=== PATIENT | female | born 1985 | race Caucasian/White ===

== ENCOUNTER → 2020-02-09 15:32 | Outpatient (CLI) | payer BC, SELFPAY ==
[2020-02-09 15:46] LABS: Basophils % 0.6 % (0.1-2.0); Eosinophils # 0.2 K/mm3 (0.0-0.4); Eosinophils % 2.7 % (0.1-12.0); Hematocrit 40.3 % (37.0-47.0); Hemoglobin 13.6 g/dL (12.2-16.2); Lymphocytes # 1.8 K/mm3 (0.7-4.5); Lymphocytes % 25.2 % (10-50); Mean Corpuscular HGB Conc 33.7 g/dL (31.8-35.4); Mean Corpuscular Hemoglobin 30.7 pg (27.0-31.2); Mean Corpuscular Volume 91.1 fl (81-99); Mean Platelet Volume 6.9 fl (7.4-10.4); Monocytes # 0.3 K/mm3 (0.1-1.0); Monocytes % 3.5 % (1.7-9.3); Neutrophils # 4.8 K/mm3 (1.8-7.8); Platelet Count 286 K/mm3 (142-424); Red Blood Count 4.42 M/mm3 (4.20-5.40); White Blood Count 7.1 K/mm3 (4.8-10.8)
[2020-02-09 17:49] LABS: Chloride 103 mmol/L (98-107); Potassium 4.5 mmoL/L (3.5-5.1); Sodium 138 mmol/L (136-145)
[2020-02-09 17:51] LABS: Alanine Aminotransferase 14 U/L (12-78); Aspartate Amino Transferase 24 U/L (14-36); Blood Urea Nitrogen 10 mg/dl (7-17); Estimated Glomerular Filt Rate 95 ml/min (>60); GFR (African American) 115 ML/MIN (>60)
[2020-02-09 17:52] LABS: Albumin Level 4.4 g/dl (3.5-5.0); Albumin/Globulin Ratio 1.6 (1.1-1.8); Alkaline Phosphatase 47 U/L (38-126); Anion Gap 9.5 mEq/L (5-15); Bilirubin,Total 0.3 mg/dl (0.2-1.3); Calcium 9.8 mg/dl (8.4-10.2); Carbon Dioxide 30 mmol/L (22.0-30.0); Globulin 2.8 g/dL (1.3-3.2); Glucose 77 mg/dl (74-100); Total Protein,Serum 7.2 g/dl (6.3-8.2)
[2020-02-09 18:23] LABS: Thyroid Stimulating Hormone 1.22 uIU/mL (0.465-4.68)
[2020-02-11 06:13] LABS: FSH 7.4 mIU/mL (.); Progesterone 0.2 ng/mL (.)
[2020-02-11 07:57] LABS: Vitamin B12 866 pg/mL (232-1245)
[2020-02-15 10:16] LABS: Estrogen 159 pg/mL (.)
[2020-02-15 15:53] LABS: Testosterone, Total, LC/MS 36.1 ng/dL (10.0-55.0)
== END ==
PROVIDERS: Visit Provider Nurse Practitioner Psychiatric/Mental Health
DX: Z00.00 Encounter for general adult medical examination without abnormal findings (principal); R53.83 Other fatigue
CPT/HCPCS: 36415; 80053; 82607; 82672; 83001; 84144; 84403; 84443; 85025

== ENCOUNTER 2021-02-02 12:29 | Emergency (ER) | payer BC, SELFPAY ==
[2021-02-02 12:30] VITALS: BP 152/71; PULSE 94; RESP 18; TEMP 36.8; O2SAT 98; BMI 33.6
[2021-02-02 12:36] VITALS: BP 152/71; PULSE 94; RESP 18; TEMP 36.8; O2SAT 98; BMI 33.7
--- NOTE | 2021-02-02 12:54 | XR_ITS ---
PROCEDURE INFORMATION: Exam: XR Left Hip Exam date and time: 02/02/2021 12:54 PM Age: 36 years old Clinical indication: Pain and injury or trauma; Sprain or strain; Hip pain; Injury details: PT had twisting injury to left hip about a month ago with continued pain TECHNIQUE: Imaging protocol: XR Left hip. Views: 2 or 3 views hip with pelvis when performed. COMPARISON: No relevant prior studies available. FINDINGS: Bones/joints: Unremarkable. No acute fracture. Soft tissues: Unremarkable. IMPRESSION: No acute findings.
--- NOTE | 2021-02-02 13:13 | HMH.EDUTC ---
[facility] – [place] Disposition Clinical Impression: Hip pain Disposition: Home, Self-Care Condition on Discharge: Good Instructions: Help for Hip Pain, Etodolac, DI for Hip Pain Additional Instructions: *Etodolac raul 8 hours with meal as needed for pain/inflammation *Not additional anti-inflammatory like Ibuprofen motrin, aleve, advil with the above amount of Etodolac. You can still take Tylenol every 4 hours as needed if you need something else for pain *Ice 20 minutes every 2 hours for the first 48 hours after the initial injury followed by moist heat every 20 minutes 3-4 times a day to affected area *Keep this area active, no movement leads to more stiffness, However take it easy and avoid heavy lifting pushing or pulling *Follow up with you family doctor if no improvement for further treatment Return if needed Straight to ER if any life threatening symptoms Prescriptions: Etodolac 200 mg PO Q8HP PRN #15 cap PRN Reason: Moderate Pain Transmission Status: Pending to [id number] Referrals: Provider,Referral, MD [Primary Care Provider] - As needed Time of Disposition: 13:55 Medical Decision Making - Edgar Inquiry Pt receiving controlled substance: No Edgar was queried for this patient: No Vital Signs: 02/02/21 12:30 02/02/21 12:36 Temperature 98.2 F 98.2 F Temperature Source Oral Oral Pulse Rate [Left Radial] 94 H 94 H Respiratory Rate 18 18 Blood Pressure [Right Arm] 152/71 H 152/71 H Blood Pressure Mean [Right Arm] 98 98 Blood Pressure Source [Right Arm] Automatic Cuff Automatic Cuff Blood Pressure Position [Right Arm] Sitting Sitting 02 Sat by Pulse Oximetry 98 98 Oxygen Delivery Method Room Air Room Air - Radiology Data #1 Image(s): Hip Image Reviewed: Yes I have reviewed radiologist's interpretation Preliminary Findings: No Fracture Seen IMPRESSION: No acute findings. [facility] [place] HPI - General Stated complaint: possible pulled muscle in Lt hip Time Seen by Provider: 02/02/21 13:13 Mode of Arrival: Ambulatory Source of Information: Patient Limitations: No Limitations Description of Symptoms (Recalled from Triage Doc. by RN): pt c/o left leg/hip pain for one month, states that she was lifting trash cans and felt a pop with a sudden burn. - History of Present Illness Provider Complaint: Patient states that she was lifting a trashcan up into the back of a truck about a month ago when she felt something pop in her left hip then she felt a burning like sensation State that ever since she has been having pain on and off in her left hip that is worse when she gets up in the morning State that today she was still having pain so she came in to get it checked - Related Data Previous Rx's Medication Instructions Recorded buspirone 10 mg tablet 10 mg PO BID #60 tab 01/25/21 Etodolac 200 mg PO Q8HP PRN #15 cap 02/02/21 Allergies Allergy/AdvReac Type Severity Reaction Status Date / Time metaproterenol [From Alupent] Allergy Unknown NA Verified 03/29/20 08:54 Sulfa (Sulfonamide Allergy Unknown NA Verified 03/29/20 08:54 Antibiotics) pseudoephedrine Allergy Verified 03/29/20 08:54 [From Sudafed] - Worker's Comp Is this a Worker's Comp case?: No [facility] History - Hepatitis A Screen Drug use history?: No High risk sexual behaviors?: No History of sexually transmitted infection?: No Currently employed?: No Childcare worker?: No Do you have indoor plumbing?: Yes Do you have electricity?: Yes Attestation statement:: This patient has been screened for Hepatitis A risk factors. I have reviewed the patient's past medical history: Yes Medical History: Reports:: Anxiety, Depression Denies:: Cancer, Diabetes Mellitus Type 1, Diabetes Mellitus Type 2, Internal Pacemaker, MRSA Other Surgeries: No: Pacemaker Amputation: No Fractures: No - Social History Smoking Status: Current every day smoker Tobacco Type: cigarettes # Packs/Day (cigarettes): 1 Alcohol Intake: never Substa
[2021-02-02 13:55] VITALS: BP 152/71; PULSE 94; RESP 18; TEMP 36.8; O2SAT 98
== END 2021-02-02 14:00 | disposition home or self-care (01) ==
PROVIDERS: Emergency Provider Nurse Practitioner; PCP Student in an Organized Health Care Education/Training Program
DX: M25.552 Pain in left hip (principal); X50.0XXA Overexertion from strenuous movement or load, initial encounter; Y92.019 Unspecified place in single-family (private) house as the place of occurrence of the external cause; Z88.2 Allergy status to sulfonamides; F17.210 Nicotine dependence, cigarettes, uncomplicated
CPT/HCPCS: 73502; 99202; G0463

== ENCOUNTER 2021-03-01 19:18 | Emergency (ER) | payer BC, SELFPAY ==
[2021-03-01 19:19] VITALS: BP 148/78; PULSE 53; RESP 22; TEMP 37.7; O2SAT 98; BMI 32.6
--- NOTE | 2021-03-01 19:49 | HMH.EDUTC ---
[facility] [place] Clinical Impression: Bronchitis Sinusitis Qualifiers: Sinusitis location: unspecified location Chronicity: unspecified Qualified Code(s): J32.9 - Chronic sinusitis, unspecified Disposition: Home, Self-Care Condition on Discharge: Good Instructions: Sinusitis, DI for Sinusitis, Prednisone, Albuterol, Cefdinir Additional Instructions: ? Start antibiotic today. Be sure to complete entire prescription even if feeling better ? Monitor temp. Tylenol every 4 hours as needed and / or ibuprofen every 6 hours as needed ( As long as your primary care physician has told you that it ok to take both. For fever/aches/pains ER if no less than 101 despite Tylenol or Motrin ? Humidifier/vaporizer or hot steamy shower ? Inhaler every 4-6 hours as needed like we discussed. If unsure how to use it, ask pharmacist to demonstrate how. Should help open airways and improve cough, wheezing, and shortness of breath ? Mucinex during the day for your cough and cough suppressant only at night. Be sure to drink lots of water. *Start steroid today. Helps with inflammation therefore, cough and wheezing. Follow directions on the package. Reviewed side effects. Patient reports taking them before. Follow up IMMEDIATELY for new or worsening of symptoms OR no noticeable improvement over the next 48-72 hours. 911 immediately for any life threatening symptoms such as chest pain or difficulty breathing You were tested for today for COVID19 your test result should be back in the next 24-48 hours, you may call to the [facility] to see if your test results are back in the next 48 hours [phone] [facility] hours are 9am-9pm You was given a handout with instructions for Self Quarantine and Self isolation for while you wait on test results and what to do if they are positive If you are positive the Health Dept will be contacting you also Prescriptions: Albuterol Sulfate [Proventil-HFA 90mcg/puff Inh] 1 - 2 puffs IH Q4HP PRN #1 inh PRN Reason: Shortness Of Breath Transmission Status: Received by [id number] Cefdinir [Omnicef 300mg Capsule] 300 mg PO BID #20 cap Transmission Status: Received by [id number] predniSONE [Prednisone 5mg Tab Dose-Pack] 5 mg PO UD DOSE PK #21 pack Transmission Status: Received by [id number] Referrals: Douglas Tello MD [Primary Care Provider] - As needed Time of Disposition: 20:05 Medical Decision Making - Edgar Inquiry Pt receiving controlled substance: No Edgar was queried for this patient: No Vital Signs: 03/01/21 19:19 Temperature 99.9 F H Temperature Source Oral Pulse Rate [Right] 53 L Respiratory Rate 22 Blood Pressure [Right Arm] 148/78 H Blood Pressure Mean [Right Arm] 101 Blood Pressure Source [Right Arm] Automatic Cuff Blood Pressure Position [Right Arm] Sitting 02 Sat by Pulse Oximetry 98 Oxygen Delivery Method Room Air - Lab Data Lab Results 03/01/21 19:50: Strep Scn Rapid Clinic Negative Orders (Tests/Meds): ED MEDICATIONS Discontinued Medications Generic Name Dose Route Start Last Admin Trade Name Freq PRN Reason Stop Dose Admin Cefdinir 300 mg 03/01/21 20:11 03/01/21 20:12 Cefdinir 300mg Capsule PO 03/01/21 20:12 300 mg ONCE ONE Administration Protocol ORDERS Category Date Time Status Covid-19 Nasal PCR ([facility]) Routine Lab 03/01/21 19:30 Received Strep Screen Confirmation Stat Micro 03/01/21 19:50 Received Medical Decision Narrative: Patient states that she is allergic to Pseudoephedrine but has used albuterol/Proventil in the past without reaction or any complications [facility] [place] - General Stated complaint: Sob, covid test Time Seen by Provider: 03/01/21 19:49 Mode of Arrival: Ambulatory Source of Information: Patient Limitations: No Limitations Description of Symptoms (Recalled from Triage Doc. by RN): cough, SOA, sore throat for the past 2 days HEENT Symptoms (Recalled from RN notes): No Resp Symptoms (Recalled fro
[2021-03-01 19:50] LABS: UTC Strep Screen (Rapid) Negative (Negative)
[2021-03-01 20:22] VITALS: BP 142/70; PULSE 55; RESP 16; TEMP 37.7; O2SAT 98
== END 2021-03-01 20:23 | disposition home or self-care (01) ==
PROVIDERS: Emergency Provider Nurse Practitioner; PCP Student in an Organized Health Care Education/Training Program
DX: J20.9 Acute bronchitis, unspecified (principal); J32.9 Chronic sinusitis, unspecified; Z20.822 Contact with and (suspected) exposure to COVID-19; F17.210 Nicotine dependence, cigarettes, uncomplicated
CPT/HCPCS: 87880; 99203; G0463; U0003

== ENCOUNTER → 2021-09-02 13:01 | Outpatient (CLI) | payer BC, SELFPAY | PROVIDERS: Visit Provider Nurse Practitioner | DX: U07.1 COVID-19 (principal) | CPT/HCPCS: C9803; U0003; U0005 ==

== ENCOUNTER 2022-08-29 18:45 | Emergency (ER) | payer BC, SELFPAY ==
[2022-08-29 19:00] VITALS: BP 144/66; PULSE 96; RESP 20; TEMP 36.9; O2SAT 97; BMI 24.3
[2022-08-29 19:07] LABS: Apearance,Urine Clear (Clear); Bilirubin,Urine Negative (Negative); Blood, Urine Negative (Negative); Color,Urine Yellow (Yellow); Glucose,Urine (UA) Negative (Negative); Ketones,Urine Negative (Negative); Protein,Urine Negative (Negative); Specific Gravity, Urine 1.025 (1.005-1.030); UTC Leukocyte Esterase,Urine Negative (Negative); UTC Nitrate,Urine Negative (Negative); Urobilinogen,Urine 0.2 EU/dl (0.2)
[2022-08-29 19:12] LABS: UTC Pregnancy Test, Urine Negative (Negative)
--- NOTE | 2022-08-29 19:14 | EXP.UTC ---
Discharge Plan Disposition Patient Disposition: Still a Patient Condition: Fair Chief Complaint: Abdominal Pain Prescriptions Prescriptions: No Action desvenlafaxine succinate [Pristiq] 50 mg tablet extended release 24 hr 50 mg PO DAILY Qty: 30 1RF risperidone 0.5 mg tablet 0.5 mg PO BID Qty: 60 1RF risperidone [Risperdal] 1 mg tablet 1 mg PO BID Qty: 60 1RF etodolac 200 MG capsule 200 mg PO Q8HP PRN (Reason: Moderate Pain) Qty: 15 0RF prednisone 5 MG tablets,dose pack 5 mg PO UD DOSE PK Qty: 21 0RF albuterol sulfate 200 PUFFS HFA aerosol inhaler 1 - 2 puffs inhalation Q4HP PRN (Reason: Shortness Of Breath) Qty: 1 0RF cefdinir 300 MG capsule 300 mg PO BID Qty: 20 0RF Referrals Follow up/Referrals: Provider,Referral, MD [Primary Care Provider] - See instructions Discharge ED Provider: Douglas Roth [facility] [place] General Stated complaint: POSSIBLE uti Mode of Arrival: Ambulatory Source of Information: Patient Limitations: No Limitations Time Seen by Provider: 08/29/22 19:14 Description of Symptoms (Recalled from Triage Doc. by RN): PATIENT C/O BILATERAL FLANK PAIN, LOWER ABDOMINAL PAIN, FEVER, CHILLS, BODY ACHES, AND DIFFICULTY URINATING X 1 WEEK HEENT Symptoms (Recalled from RN notes): No Resp Symptoms (Recalled from RN notes): No Skin Symptoms (Recalled from RN notes): No MS Symptoms (Recalled from RN notes): No Functional Status (Recalled from RN notes): WNL History of Present Illness Provider Complaint: Patient states that for the last week on and off she has been having pain in her lower abdomen, bilateral flank pain, fever chills, and body aches for about a week State that tonight she thinks she her kidneys are infected States that she was worried when she was still having pain and wanted to get checked States that pain in her abdomen has let up a little but started getting worse after she got here Related Data Previous Rx's Medication Instructions Recorded etodolac 200 mg capsule 200 mg PO Q8HP PRN Moderate Pain 02/02/21 #15 caps albuterol sulfate 90 mcg/actuation 1 - 2 puffs inhalation Q4HP PRN 03/01/21 aerosol inhaler Shortness Of Breath #1 inh cefdinir 300 mg capsule 300 mg PO BID #20 caps 03/01/21 prednisone 5 mg tablets in a dose 5 mg PO UD DOSE PK ##21 03/01/21 pack desvenlafaxine succinate 50 mg 50 mg PO DAILY #30 tabs 05/15/21 tablet,extended release 24 hr (Pristiq) risperidone 0.5 mg tablet 0.5 mg PO BID #60 tabs 07/29/22 risperidone 1 mg tablet (Risperdal) 1 mg PO BID #60 tabs 08/22/22 Allergies Allergy/AdvReac Type Severity Reaction Status Date / Time metaproterenol [From Alupent] Allergy Unknown NA Verified 07/29/22 11:09 Sulfa (Sulfonamide Allergy Unknown NA Verified 07/29/22 11:09 Antibiotics) pseudoephedrine Allergy Verified 07/29/22 11:09 [From Sudafed] Worker's Comp Is this a Worker's Comp case?: No [facility] Disclaimer: The information contained in this section may have been updated after the patient was seen, as this information can be updated by other users. Medical History (Updated 08/29/22 @ 19:12 by Jessy Fair RN) Anxiety Social History Smoking Status: Current every day smoker tobacco type: cigarettes packs per day: 1 second hand exposure: Yes alcohol intake: never substance use type: painkillers and other (she is currently on methodone that she gets off the street; see above) current occupational status: other Travel in the last 8 weeks: None number of children: 4 caffeine: No ROS Obtained: Yes All systems reviewed & no additional complaints except as documented and Yes Systems reviewed as appropriate & no additional complaints except as documented Constitutional Constitutional: Reports system reviewed and no additional complaints, except as documented, Reports as per HPI, Reports body ache, Reports chills and Reports fever(s) Cardiovascular Cardiovascular: Reports system rev
[2022-08-29 19:20] VITALS: BP 144/66; PULSE 96; RESP 20; TEMP 36.9; O2SAT 97; BMI 25.0
--- NOTE | 2022-08-29 19:23 | CT_ITS ---
PROCEDURE INFORMATION: Exam: CT Abdomen And Pelvis With Contrast Exam date and time: 08/29/2022 7:43 PM Age: 37 years old Clinical indication: Abdominal pain; Additional info: Abd pain TECHNIQUE: Imaging protocol: Computed tomography of the abdomen and pelvis with contrast. Radiation optimization: All CT scans at this facility use at least one of these dose optimization techniques: automated exposure control; mA and/or kV adjustment per patient size (includes targeted exams where dose is matched to clinical indication); or iterative reconstruction. Contrast material: ISOVUE; Contrast volume: 75 ml; Contrast route: IV; COMPARISON: CR XR HIP LT 2-3V W/PELVIS 02/02/2021 12:56 PM FINDINGS: Liver: Normal. No mass. Gallbladder and bile ducts: Gallbladder is decompressed. Pancreas: Normal enhancement. No ductal dilation. Spleen: No splenomegaly. Adrenal glands: No mass. Kidneys and ureters: No hydronephrosis. Stomach and bowel: Moderately distended stomach. Moderate to large stool burden within the colon. No bowel obstruction. Appendix: No evidence of appendicitis. Intraperitoneal space: No significant fluid collection. No free air. Vasculature: No abdominal aortic aneurysm. Lymph nodes: No enlarged lymph nodes. Urinary bladder: No acute abnormality. Reproductive: No acute abnormality. Bones/joints: No acute fracture. Soft tissues: No soft tissue swelling. Other findings: Exam is limited by patient motion. IMPRESSION: 1. Moderately distended stomach. Correlate clinically with potential delayed gastric emptying. 2. Moderate to large stool burden within the colon.
[2022-08-29 19:32] LABS: Basophils # 0.1 K/mm3 (0-0.2); Basophils % 1.2 % (0.1-2.0); Eosinophils # 0.2 K/mm3 (0.0-0.4); Eosinophils % 2.4 % (0.1-12.0); Hematocrit 38.2 % (37.0-47.0); Hemoglobin 13.3 g/dL (12.2-16.2); Lymphocytes # 0.8 K/mm3 (0.7-4.5); Lymphocytes % 12.6 % (10-50); Mean Corpuscular HGB Conc 34.7 g/dL (31.8-35.4); Mean Corpuscular Hemoglobin 30.4 pg (27.0-31.2); Mean Corpuscular Volume 87.8 fl (81-99); Mean Platelet Volume 8.1 fl (7.4-10.4); Monocytes # 0.4 K/mm3 (0.1-1.0); Monocytes % 5.9 % (1.7-9.3); Neutrophils % 77.9 % (37.0-80.0); Platelet Count 256 K/mm3 (142-424); Red Blood Count 4.36 M/mm3 (4.20-5.40); Red Cell Distribution Width 12.3 % (11.5-17.5); White Blood Count 6.4 K/mm3 (4.8-10.8)
[2022-08-29 19:34] LABS: Microscopic, Urine URINE MICROSCOPIC (MICROSCOPIC)
[2022-08-29 19:40] LABS: Alanine Aminotransferase 20 U/L (12-78); Albumin Level 4.5 g/dl (3.5-5.0); Albumin/Globulin Ratio 1.7 (1.1-1.8); Alkaline Phosphatase 79 U/L (38-126); Amylase 93 U/L (30-110); Anion Gap 12.5 mEq/L (5-15); Aspartate Amino Transferase 25 U/L (14-36); Bilirubin,Total 0.2 mg/dl (0.2-1.3); Blood Urea Nitrogen 23 mg/dl (7-17); Calcium 9.3 mg/dl (8.4-10.2); Carbon Dioxide 28 mmol/L (22.0-30.0); Chloride 103 mmol/L (98-107); Creatinine Clearance Estimated 114 mL/min (50-200); Estimated Glomerular Filt Rate 81 ml/min (>60); GFR (African American) 98 ML/MIN (>60); Globulin 2.7 g/dL (1.3-3.2); Glucose 82 mg/dl (74-100); Lipase 309 U/L (23-300); Potassium 3.5 mmoL/L (3.5-5.1); Sodium 140 mmol/L (136-145); Total Protein,Serum 7.2 g/dl (6.3-8.2)
[2022-08-29 19:42] LABS: Appearance,Urine CLEAR (Clear); Bilirubin,Urine Negative (Negative); Blood, Urine Negative (Negative); Color,Urine YELLOW (Yellow); Glucose,Urine (UA) Negative (Negative); Ketones,Urine Negative (Negative); Leukocyte Esterase,Urine Negative (Negative); Nitrate,Urine Negative (Negative); Protein,Urine Negative (Negative); Urobilinogen,Urine 0.2 EU/dl (0.2)
--- NOTE | 2022-08-29 19:52 | PC.NURSE ---
Pt gone to RAD
--- NOTE | 2022-08-29 19:57 | PC.NURSE ---
Pt back from RAD
[2022-08-29 20:00] VITALS: BP 115/74; PULSE 87; O2SAT 99
[2022-08-29 20:16] LABS: Amorphous Sediment,Urine 1+ /lpf; Bacteria,Urine 1+ /lpf; Fine Granular Casts,Urine Occasional #/lpf (0)
--- NOTE | 2022-08-29 20:35 | HMH.EDABDPAI ---
Discharge Plan Disposition Patient Disposition: Home, Self-Care Condition: Fair Prescriptions Prescriptions: No Action desvenlafaxine succinate [Pristiq] 50 mg tablet extended release 24 hr 50 mg PO DAILY Qty: 30 1RF risperidone 0.5 mg tablet 0.5 mg PO BID Qty: 60 1RF risperidone [Risperdal] 1 mg tablet 1 mg PO BID Qty: 60 1RF etodolac 200 MG capsule 200 mg PO Q8HP PRN (Reason: Moderate Pain) Qty: 15 0RF prednisone 5 MG tablets,dose pack 5 mg PO UD DOSE PK Qty: 21 0RF albuterol sulfate 200 PUFFS HFA aerosol inhaler 1 - 2 puffs inhalation Q4HP PRN (Reason: Shortness Of Breath) Qty: 1 0RF cefdinir 300 MG capsule 300 mg PO BID Qty: 20 0RF Referrals Follow up/Referrals: Provider,Referral, MD [Primary Care Provider] - See instructions Clinical Impressions Clinical Impression: Abdominal pain Instructions Patient Instructions: DI for Acute Abdominal Pain Discharge ED Provider: Douglas Roth Abdominal Pain HPI General Chief Complaint: Abdominal Pain Stated Complaint: POSSIBLE uti Time Seen by Provider: 08/29/22 19:14 Mode of Arrival: Wheelchair Source of Information: Patient Limitations: No Limitations Description of Symptoms (Recalled from ER Triage Doc. by RN): pt c/o fever, chills, bilateral flank and lower abd pain that started a week ago. History of Present Illness HPI narrative: lower abd pain over the last few days - worse tonight - no dysuria or hematuria and no vag d/c - MD complaint: abdominal pain Onset (ago): hour(s) Consistency: intermittent Location: LUQ Severity: moderate Associated symptoms: denies other symptoms Related Data Previous Rx's Medication Instructions Recorded etodolac 200 mg capsule 200 mg PO Q8HP PRN Moderate Pain 02/02/21 #15 caps albuterol sulfate 90 mcg/actuation 1 - 2 puffs inhalation Q4HP PRN 03/01/21 aerosol inhaler Shortness Of Breath #1 inh cefdinir 300 mg capsule 300 mg PO BID #20 caps 03/01/21 prednisone 5 mg tablets in a dose 5 mg PO UD DOSE PK ##21 03/01/21 pack desvenlafaxine succinate 50 mg 50 mg PO DAILY #30 tabs 05/15/21 tablet,extended release 24 hr (Pristiq) risperidone 0.5 mg tablet 0.5 mg PO BID #60 tabs 07/29/22 risperidone 1 mg tablet (Risperdal) 1 mg PO BID #60 tabs 08/22/22 Allergies Allergy/AdvReac Type Severity Reaction Status Date / Time metaproterenol [From Alupent] Allergy Unknown NA Verified 07/29/22 11:09 Sulfa (Sulfonamide Allergy Unknown NA Verified 07/29/22 11:09 Antibiotics) pseudoephedrine Allergy Verified 07/29/22 11:09 [From Sudafed] [facility] Disclaimer: The information contained in this section may have been updated after the patient was seen, as this information can be updated by other users. Medical History (Updated 08/29/22 @ 20:50 by Douglas Roth MD) Anxiety Social History Smoking Status: Current every day smoker tobacco type: cigarettes packs per day: 1 second hand exposure: Yes alcohol intake: never substance use type: painkillers and other (she is currently on methodone that she gets off the street; see above) current occupational status: other Travel in the last 8 weeks: None number of children: 4 caffeine: No ROS Obtained: Yes All systems reviewed & no additional complaints except as documented Physical Exam General General appearance: alert and in no apparent distress Head Head exam: normocephalic Eye Eye exam: Present PERRL and EOMI ENT ENT exam: Present normal oropharynx Neck Neck exam: Present trachea midline Respiratory Respiratory exam: Present normal lung sounds bilaterally; Absent respiratory distress Cardiovascular Cardiovascular exam: Present regular rate Abdominal Exam Abdominal exam: Present soft and tenderness Abdominal tenderness: Present LUQ and mild Extremities Exam Extremities exam: Present full ROM Neurological Exam Neurological exam: Present alert, oriented X3 and CN II-XII intact Psychiatr
--- NOTE | 2022-08-29 20:39 | PC.NURSE ---
Dr. Roth at speaking with pt/ and updating them on results
[2022-08-29 20:42] LABS: C-Reactive Protein 10.9 mg/L (0-4)
[2022-08-29 20:45] VITALS: BP 112/70; PULSE 81; RESP 18; TEMP 36.9; O2SAT 99
[2022-08-29 21:06] LABS: Erythrocyte Sedimentation Rate 20 mm/hr (0-20)
[2022-08-29 21:56] LABS: Procalcitonin 0.052 ng/mL (0.0-2.0)
== END 2022-08-29 20:54 | disposition home or self-care (01) ==
LOC: UTC 18:52 → ER 19:20
PROVIDERS: Nurse Practitioner; Emergency Provider Emergency Medicine
DX: R10.31 Right lower quadrant pain (principal); R10.32 Left lower quadrant pain; F41.9 Anxiety disorder, unspecified; F17.210 Nicotine dependence, cigarettes, uncomplicated
CPT/HCPCS: 74177; 80053; 81001; 81003; 81025; 82150; 83690; 84145; 85025; 85651; 86140; 96361; 96374; 96375; 99285; J2405; Q9967

== ENCOUNTER 2022-09-13 22:39 | Emergency (ER) | payer BC, SELFPAY ==
--- NOTE | 2022-09-13 22:36 | ECG_ITS ---
APPROVED REPORT Exam: Resting ECG HR:76 bpm ECG Measurements Heart Rate 76 AXES TN 135 P 2 QRSd 95 QRS -11 QT 388 T 7 QTc 418 Conclusion SINUS RHYTHM MODERATE VOLTAGE CRITERIA FOR LVH, CONSIDER NORMAL VARIANT [MEETS CRITERIA IN ONE OF: R(aVL), S(V1), R(V5), R(V5/V6)+S(V1)] BORDERLINE ECG UNCONFIRMED REPORT Electronically signed by : Alex Quinteros MD 09/14/2022 15:07:06
[2022-09-13 22:39] VITALS: BP 132/85; PULSE 83; RESP 16; TEMP 37.1; O2SAT 100; BMI 22.8
--- NOTE | 2022-09-13 22:42 | CT_ITS ---
PROCEDURE INFORMATION: Exam: CT Head Without Contrast Exam date and time: 09/13/2022 10:52 PM Age: 37 years old Clinical indication: Numbness / parasthesia; Left; Additional info: Numbness left side of face TECHNIQUE: Imaging protocol: Computed tomography of the head without contrast. Radiation optimization: All CT scans at this facility use at least one of these dose optimization techniques: automated exposure control; mA and/or kV adjustment per patient size (includes targeted exams where dose is matched to clinical indication); or iterative reconstruction. Other protocol: This patient has received [address] and 0 known cardiac nuclear medicine studies in the 12 months prior to the current study. COMPARISON: HEADWO CT head/brain wo con 07/13/2018 7:20 PM FINDINGS: Brain: Normal. No hemorrhage. Unremarkable white matter. No mass effect. Cerebral ventricles: No ventriculomegaly. Paranasal sinuses: Visualized sinuses are unremarkable. No fluid levels. Mastoid air cells: Visualized mastoid air cells are well aerated. Bones/joints: Unremarkable. No acute fracture. Soft tissues: Unremarkable. IMPRESSION: No acute intracranial abnormality.
--- NOTE | 2022-09-13 22:49 | PC.NURSE ---
Pt gone to RAD via stretcher
[2022-09-13 22:53] LABS: Basophils # 0.1 K/mm3 (0-0.2); Basophils % 0.7 % (0.1-2.0); Eosinophils # 0.1 K/mm3 (0.0-0.4); Eosinophils % 1.3 % (0.1-12.0); Hematocrit 41.1 % (37.0-47.0); Hemoglobin 13.1 g/dL (12.2-16.2); Lymphocytes # 1.8 K/mm3 (0.7-4.5); Mean Corpuscular Volume 90.7 fl (81-99); Mean Platelet Volume 8.3 fl (7.4-10.4); Monocytes # 0.3 K/mm3 (0.1-1.0); Monocytes % 3.4 % (1.7-9.3); Neutrophils # 5.2 K/mm3 (1.8-7.8); Neutrophils % 70.7 % (37.0-80.0); Platelet Count 271 K/mm3 (142-424); Red Blood Count 4.53 M/mm3 (4.20-5.40); Red Cell Distribution Width 12.4 % (11.5-17.5); White Blood Count 7.4 K/mm3 (4.8-10.8)
[2022-09-13 22:54] LABS: Chloride 103 mmol/L (98-107); Potassium 3.7 mmoL/L (3.5-5.1); Sodium 141 mmol/L (136-145)
--- NOTE | 2022-09-13 22:54 | PC.NURSE ---
Pt back from RAD
[2022-09-13 22:56] LABS: Alanine Aminotransferase 20 U/L (12-78); Aspartate Amino Transferase 25 U/L (14-36); Blood Urea Nitrogen 12 mg/dl (7-17); Creatinine Clearance Estimated 118 mL/min (50-200); Estimated Glomerular Filt Rate 94 ml/min (>60); GFR (African American) 114 ML/MIN (>60)
[2022-09-13 22:57] LABS: Albumin Level 4.2 g/dl (3.5-5.0); Albumin/Globulin Ratio 1.6 (1.1-1.8); Alkaline Phosphatase 68 U/L (38-126); Anion Gap 6.7 mEq/L (5-15); Bilirubin,Total 0.2 mg/dl (0.2-1.3); Calcium 9.2 mg/dl (8.4-10.2); Carbon Dioxide 35 mmol/L (22.0-30.0); Globulin 2.7 g/dL (1.3-3.2); Glucose 96 mg/dl (74-100); Total Protein,Serum 6.9 g/dl (6.3-8.2)
--- NOTE | 2022-09-13 23:23 | HMH.EDNEU ---
Discharge Plan Disposition Patient Disposition: Home, Self-Care Chief Complaint: Neuro Symptoms/Deficit Prescriptions Prescriptions: No Action trazodone 50 mg tablet 50 mg PO QHS PRN (Reason: sleep) Qty: 30 1RF etodolac 200 MG capsule 200 mg PO Q8HP PRN (Reason: Moderate Pain) Qty: 15 0RF paliperidone [Invega] 6 mg tablet extended release 24 hr 6 mg PO DAILY desvenlafaxine succinate [Pristiq] 50 mg tablet extended release 24 hr 50 mg PO DAILY Referrals Follow up/Referrals: Provider,Referral, MD [Primary Care Provider] - See instructions Clinical Impressions Clinical Impression: TIA (transient ischemic attack) Instructions Patient Instructions: DI for Transient Ischemic Attack Discharge ED Provider: Ira (ED)Douglas Neuro HPI General Chief Complaint: Neuro Symptoms/Deficit Stated Complaint: Neuro Time Seen by Provider: 09/13/22 23:24 Mode of Arrival: Ambulatory Source of Information: Patient and Medical Record Limitations: No Limitations Description of Symptoms (Recalled from ER Triage Doc. by RN): pt states @ 10:15 lt side of face began numb and had facial droop and rt arm tingling and numbness last 5 minutes then resolved. FSBS 109 History of Present Illness HPI Narrative: brief episode of facial numbness and tingling in upper ext bilat for a few min - pt told me 1-2 w/o lower ext involvement and no speech or visual sx and at baseline now and no motor involvement - no drugs or htn and no card sx and no diabetes mellitus Onset (ago): minute(s) Location: left face, left arm and right arm History of same: No Severity: mild Quality: tingling Context: sudden onset On Anticoagulants: No Associated symptoms: denies other symptoms Treatments Prior to Arrival: none Related Data Home Medications Medication Instructions Recorded Confirmed desvenlafaxine succinate 50 mg 50 mg PO DAILY Depression 09/13/22 09/13/22 tablet,extended release 24 hr (Pristiq) paliperidone 6 mg tablet,extended 6 mg PO DAILY mood 09/13/22 09/13/22 release 24 hr (Invega) Previous Rx's Medication Instructions Recorded etodolac 200 mg capsule 200 mg PO Q8HP PRN Moderate Pain 02/02/21 #15 caps trazodone 50 mg tablet 50 mg PO QHS PRN sleep #30 tabs 09/05/22 Allergies Allergy/AdvReac Type Severity Reaction Status Date / Time metaproterenol [From Alupent] Allergy Unknown NA Verified 09/05/22 11:51 Sulfa (Sulfonamide Allergy Unknown NA Verified 09/05/22 11:51 Antibiotics) pseudoephedrine Allergy Verified 09/05/22 11:51 [From Sudafed] Stroke Alert/NIH Score LOC Stroke Alert: No LOC Commands: Obeys both correctly Facial/Visual Best Gaze: Normal Visual: No visual loss Facial Palsy: Normal Motor Motor Response, Left Arm: No drift/Amputation/Fused Motor Response, Right Arm: No drift/Amputation/Fused Motor Response, Left Leg: No drift/Amputation/Fused Motor Response, Right Leg: No drift/Amputation/Fused Sensory/Language Limb Ataxia: Absent Sensory: Normal Best Language: No aphasia Dysarthria: Normal speech, Intubated or Barrier present NIH Score Stroke Risk Score: 0 PFSH PFSH Disclaimer: The information contained in this section may have been updated after the patient was seen, as this information can be updated by other users. Medical History (Updated 09/13/22 @ 23:31 by Douglas Roth (IRA)MD) Anxiety Social History Smoking Status: Current every day smoker tobacco type: cigarettes packs per day: 1 second hand exposure: Yes alcohol intake: never substance use type: painkillers and other (she is currently on methodone that she gets off the street; see above) current occupational status: other Travel in the last 8 weeks: None number of children: 4 caffeine: No ROS Obtained: Yes All systems reviewed & no additional complaints except as documented Physical Exam General General appearance: alert Head Head exam: normocephalic Eye Eye
[2022-09-13 23:24] VITALS: BP 129/78; PULSE 80; RESP 16; TEMP 37.1; O2SAT 100
== END 2022-09-13 23:33 | disposition home or self-care (01) ==
PROVIDERS: Emergency Provider Emergency Medicine
DX: G45.9 Transient cerebral ischemic attack, unspecified (principal); F41.9 Anxiety disorder, unspecified; F17.210 Nicotine dependence, cigarettes, uncomplicated
CPT/HCPCS: 70450; 80053; 85025; 93005; 99285

== ENCOUNTER → 2022-10-09 08:19 | Outpatient (CLI) | payer BC, SELFPAY ==
--- NOTE | 2022-10-09 08:21 | US_ITS ---
FINAL REPORT TECHNIQUE: Sonographic images of the right upper quadrant were obtained. CLINICAL HISTORY: abdominal pain - nausea FINDINGS: PANCREAS: Unremarkable. LIVER: Homogeneous. No focal hepatic lesion. No intrahepatic biliary ductal dilatation. GALLBLADDER: No gallstones. No gallbladder wall thickening or pericholecystic fluid. COMMON DUCT: 4 mm. Normal for age. RIGHT KIDNEY: The right kidney measures 11.9 cm. There is no hydronephrosis, mass, or stone. FREE FLUID: None. IMPRESSION: Unremarkable ultrasound of the right upper quadrant. Reviewed, Interpreted and Dictated by Li Marcelo MD Transcribed by Rafaela Birch Authenticated and [facility]
== END ==
LOC: RAD 08:19
PROVIDERS: PCP Emergency Medicine; Visit Provider Emergency Medicine
DX: R10.9 Unspecified abdominal pain (principal)
CPT/HCPCS: 76705

== ENCOUNTER 2022-12-17 15:12 | Emergency (ER) | payer BC, SELFPAY ==
[2022-12-17 15:15] VITALS: BP 129/67; BP 130/74; PULSE 78; PULSE 81; RESP 18; RESP 19; TEMP 37.4; TEMP 37.8; O2SAT 97; O2SAT 99; BMI 27.0
--- NOTE | 2022-12-17 15:34 | PC.NURSE ---
UA sent, Dr. Knight at bedside
--- NOTE | 2022-12-17 15:36 | CT_ITS ---
PROCEDURE INFORMATION: Exam: CT Abdomen And Pelvis Without Contrast Exam date and time: 12/17/2022 4:12 PM Age: 37 years old Clinical indication: Abdominal pain; Flank; Right; Additional info: Right flank pain renal colic TECHNIQUE: Imaging protocol: Computed tomography of the abdomen and pelvis without contrast. Radiation optimization: All CT scans at this facility use at least one of these dose optimization techniques: automated exposure control; mA and/or kV adjustment per patient size (includes targeted exams where dose is matched to clinical indication); or iterative reconstruction. REPORTING DATA: Count of CT and Cardiac NM exams in prior 12 months: This patient has received 2 known CTs and 0 known cardiac nuclear medicine studies in the 12 months prior to the current study. COMPARISON: CT ABDOMEN PELVIS W CON 08/29/2022 7:43 PM FINDINGS: Liver: Normal. No mass. Gallbladder and bile ducts: Normal. No calcified stones. No ductal dilation. Pancreas: Normal. No ductal dilation. Spleen: Normal. No splenomegaly. Adrenal glands: Normal. No mass. Kidneys and ureters: There is mild right hydronephrosis no evidence of no evidence of urolithiasis. Left kidney appears normal. Stomach and bowel: There is significant fecal retention throughout the colon. No abnormally dilated bowel loops. No bowel wall thickening or obstruction. Appendix: No evidence of appendicitis. Intraperitoneal space: Unremarkable. No free air. No significant fluid collection. Vasculature: Unremarkable. No abdominal aortic aneurysm. Lymph nodes: Unremarkable. No enlarged lymph nodes. Urinary bladder: Unremarkable as visualized. Reproductive: Unremarkable as visualized. Bones/joints: Mild degenerative changes are present in the bilateral sacroiliac joints. Bones are otherwise unremarkable. Soft tissues: Unremarkable. IMPRESSION: 1. Mild right hydronephrosis without evidence of urolithiasis. This raises suspicion for urinary tract infection 2. Moderate colonic fecal retention 3. Mild bilateral sacroiliitis
[2022-12-17 15:46] LABS: Microscopic, Urine URINE MICROSCOPIC (MICROSCOPIC)
--- NOTE | 2022-12-17 15:54 | HMH.EDGENADL ---
Discharge Plan Disposition Patient Disposition: Home, Self-Care Prescriptions Prescriptions: New cefdinir 300 mg capsule 300 mg PO BID 14 Days Qty: 28 0RF naproxen 500 mg tablet 500 mg PO BID PRN (Reason: pain) Qty: 20 0RF ondansetron 4 mg Tablet,Disintegrating 4 mg PO Q8H PRN (Reason: Nausea) Qty: 15 0RF Referrals Follow up/Referrals: Douglas Roth MD [Primary Care Provider] - See instructions Activity Restrictions/Add. Instructions Additional Instructions/Restrictions: Return for worsening pain swelling vomiting or any other concerns within the next 8 hours otherwise follow-up with your primary care physician within the next few days Clinical Impressions Clinical Impression: Acute pyelonephritis Instructions Patient Instructions: DI for Urinary Tract Infection (UTI), DI for Urinary Tract Infection in Children Discharge ED Provider: Branden Knight General Adult HPI General Chief complaint: Urogenital-Female Stated complaint: Right kidney pain Time Seen by Provider: 12/17/22 15:15 Mode of Arrival: Wheelchair Source of Information: Patient Limitations: No Limitations Description of Symptoms (Recalled from ER Triage Doc. by RN): Pt reports burning with urination and spasming of urethra area when urinating x2 days. Pt reports today began having R flank pain. History of Present Illness HPI narrative: 37-year-old female presents with right-sided flank pain for 1 day. She says she has burning with urination and spasm of the urethra for 2 days worse when urinating. She has subjective fever no chills. No hematuria but she is on her period. No history of kidney stones. She says the pain is severe when it comes on sharp and nonradiating Related Data Previous Rx's Medication Instructions Recorded cefdinir 300 mg capsule 300 mg PO BID 14 days #28 caps 12/17/22 naproxen 500 mg tablet 500 mg PO BID PRN pain #20 tabs 12/17/22 ondansetron 4 mg disintegrating 4 mg PO Q8H PRN Nausea #15 tabs 12/17/22 tablet Allergies Allergy/AdvReac Type Severity Reaction Status Date / Time metaproterenol [From Alupent] Allergy Unknown NA Verified 10/10/22 11:33 Sulfa (Sulfonamide Allergy Unknown NA Verified 10/10/22 11:33 Antibiotics) pseudoephedrine Allergy Verified 10/10/22 11:33 [From Sudafed] [facility] Disclaimer: The information contained in this section may have been updated after the patient was seen, as this information can be updated by other users. Medical History (Updated 12/17/22 @ 18:12 by Branden Knight MD) Anxiety Family History (Updated 10/08/22 @ 08:50 by ALBIN Mena) Other Fibromyalgia Multiple sclerosis Social History (Updated 10/14/22 @ 10:50 by Manuela Agudelo APRN) Smoking Status: Never smoker second hand exposure: Yes alcohol intake: never substance use type: former substance user current occupational status: other Travel in the last 8 weeks: None number of children: 4 caffeine: No ROS Obtained: Yes All systems reviewed & no additional complaints except as documented Constitutional Constitutional: Denies fatigue and Denies headache(s) Eyes Eyes: Denies dry eyes ENT Ears, Nose, Mouth, and Throat: Denies dry mouth and Denies headache(s) Cardiovascular Cardiovascular: Denies diaphoresis and Denies dyspnea Respiratory Respiratory: Denies dyspnea Gastrointestinal Gastrointestingal: Denies coffee ground emesis Genitourinary Female Genitourinary: Denies hematuria Musculoskeletal Musculoskeletal: Denies joint stiffness Integumentary/Breasts Skin/Breast: Denies rash Neurologic Neurologic: Denies headache(s) Endocrine Endocrine: Denies fatigue Hematologic/Lymphatic Henatologic/Lymphatic: Denies easy bleeding Allergic/Immunologic Allergic/Immunologic: Denies urticaria Physical Exam General General appearance: alert and in no apparent distress Eye Eye exam: Present PERRL and EOMI ENT ENT exam: Present normal exam and nor
[2022-12-17 15:57] LABS: Basophils % 0.3 % (0.1-2.0); Eosinophils # 0.1 K/mm3 (0.0-0.4); Eosinophils % 1.1 % (0.1-12.0); Lymphocytes % 19.8 % (10-50); Mean Corpuscular HGB Conc 31.7 g/dL (31.8-35.4); Mean Corpuscular Hemoglobin 29.5 pg (27.0-31.2); Mean Corpuscular Volume 93.2 fl (81-99); Mean Platelet Volume 7.6 fl (7.4-10.4); Monocytes # 0.4 K/mm3 (0.1-1.0); Neutrophils # 7.4 K/mm3 (1.8-7.8); Neutrophils % 74.8 % (37.0-80.0); Platelet Count 305 K/mm3 (142-424); Red Cell Distribution Width 12.3 % (11.5-17.5); White Blood Count 9.9 K/mm3 (4.8-10.8)
[2022-12-17 15:59] LABS: Appearance,Urine CLEAR (Clear); Bilirubin,Urine Negative (Negative); Blood, Urine 3+ (Negative); Color,Urine YELLOW (Yellow); Glucose,Urine (UA) Negative (Negative); Ketones,Urine Negative (Negative); Leukocyte Esterase,Urine 2+ (Negative); Nitrate,Urine Negative (Negative); Protein,Urine Negative (Negative); Specific Gravity, Urine <= 1.005 (1.005-1.030); Urobilinogen,Urine 0.2 EU/dl (0.2)
[2022-12-17 16:00] VITALS: BP 112/58; PULSE 74; O2SAT 97
[2022-12-17 16:02] LABS: HCG Qualitative, Serum Negative (Negative)
[2022-12-17 16:02] LABS: Urine Pregnancy, HCG Qual. Negative (Negative)
[2022-12-17 16:07] LABS: Chloride 93 mmol/L (98-107); Potassium 4.2 mmoL/L (3.5-5.1); Sodium 137 mmol/L (136-145)
[2022-12-17 16:09] LABS: Alanine Aminotransferase 27 U/L (12-78); Aspartate Amino Transferase 30 U/L (14-36); Blood Urea Nitrogen 8 mg/dl (7-17); Creatinine Clearance Estimated 140 mL/min (50-200); Estimated Glomerular Filt Rate 94 ml/min (>60); GFR (African American) 114 ML/MIN (>60)
[2022-12-17 16:10] LABS: Albumin Level 3.9 g/dl (3.5-5.0); Albumin/Globulin Ratio 1.3 (1.1-1.8); Alkaline Phosphatase 81 U/L (38-126); Anion Gap 13.2 mEq/L (5-15); Calcium 9.1 mg/dl (8.4-10.2); Carbon Dioxide 35 mmol/L (22.0-30.0); Globulin 2.9 g/dL (1.3-3.2); Glucose 85 mg/dl (74-100); Total Protein,Serum 6.8 g/dl (6.3-8.2)
[2022-12-17 16:13] LABS: Bilirubin,Total 0.1 mg/dl (0.2-1.3)
[2022-12-17 16:22] LABS: Bacteria,Urine 1+ /lpf
--- NOTE | 2022-12-17 18:06 | PC.NURSE ---
Patient's scan is back, appears in pain, but denies needing pain medication at this time
[2022-12-17 18:19] VITALS: BP 134/69; PULSE 84; RESP 19; TEMP 36.9; O2SAT 97
== END 2022-12-17 18:19 | disposition home or self-care (01) ==
PROVIDERS: Emergency Provider Emergency Medicine; PCP Emergency Medicine
DX: N10 Acute pyelonephritis (principal)
CPT/HCPCS: 74176; 80053; 81001; 81025; 84703; 85025; 87086; 87088; 87186; 96361; 96365; 96375; 99284; 99285; J0696; J2405

== ENCOUNTER → 2023-05-14 15:54 | Outpatient (CLI) | payer BC, SELFPAY ==
[2023-05-14 12:51] LABS: Basophils % 0.4 % (0.1-2.0); Eosinophils # 0.1 K/mm3 (0.0-0.4); Eosinophils % 1.1 % (0.1-12.0); Hematocrit 47.2 % (37.0-47.0); Hemoglobin 15.4 g/dL (12.2-16.2); Lymphocytes # 1.8 K/mm3 (0.7-4.5); Mean Corpuscular HGB Conc 32.5 g/dL (31.8-35.4); Mean Corpuscular Hemoglobin 29.5 pg (27.0-31.2); Mean Corpuscular Volume 90.7 fl (81-99); Mean Platelet Volume 7.9 fl (7.4-10.4); Monocytes # 0.3 K/mm3 (0.1-1.0); Neutrophils # 3.1 K/mm3 (1.8-7.8); Neutrophils % 59.5 % (37.0-80.0); Platelet Count 262 K/mm3 (142-424); Red Blood Count 5.21 M/mm3 (4.20-5.40); Red Cell Distribution Width 12.9 % (11.5-17.5); White Blood Count 5.2 K/mm3 (4.8-10.8)
[2023-05-14 13:37] LABS: Alanine Aminotransferase 23 U/L (12-78); Albumin Level 4.8 g/dl (3.5-5.0); Albumin/Globulin Ratio 1.5 (1.1-1.8); Alkaline Phosphatase 86 U/L (38-126); Anion Gap 13.5 mEq/L (5-15); Aspartate Amino Transferase 31 U/L (14-36); Bilirubin,Total 0.5 mg/dl (0.2-1.3); Blood Urea Nitrogen 13 mg/dl (7-17); Calcium 9.8 mg/dl (8.4-10.2); Carbon Dioxide 29 mmol/L (22.0-30.0); Chloride 102 mmol/L (98-107); Chol/HDL Ratio 2.3 (1-3.5); Cholesterol 178 mg/dl (140-200); Estimated Glomerular Filt Rate 94 ml/min (>60); GFR (African American) 113 ML/MIN (>60); Globulin 3.1 g/dL (1.3-3.2); Glucose 60 mg/dl (74-100); HDL Cholesterol 78 mg/dl (40-60); Potassium 4.5 mmoL/L (3.5-5.1); Sodium 140 mmol/L (136-145); Total Protein,Serum 7.9 g/dl (6.3-8.2); Triglycerides 67 mg/dl (30-150); VLDL Cholesterol 13 mg/dL (0-40)
[2023-05-14 13:47] LABS: Direct LDL Cholesterol 81.85 mg/dL (100-129)
[2023-05-14 13:53] LABS: 25-OH Vitamin D, Total 60.3 ng/mL (30-100)
[2023-05-14 14:06] LABS: Thyroid Stimulating Hormone 1.51 uIU/mL (0.465-4.68)
[2023-05-14 15:00] LABS: Vitamin B12 > 1000 pg/mL (239-931)
[2023-05-16 08:19] LABS: Estradiol 57.6 pg/mL (.); FSH 6.4 mIU/mL (.); Progesterone 0.2 ng/mL (.); Testosterone,Total 58 ng/dL (8-60)
[2023-05-20 14:12] LABS: Estrogen 84 pg/mL (.)
== END ==
PROVIDERS: PCP Physician Assistant; Visit Provider Physician Assistant
DX: R45.86 Emotional lability (principal); R79.89 Other specified abnormal findings of blood chemistry
CPT/HCPCS: 80053; 80061; 82306; 82607; 82626; 82670; 82672; 83001; 83002; 84144; 84403; 84443; 85025

== ENCOUNTER 2024-01-24 11:33 | Emergency (ER) | payer OTHER, SELFPAY ==
[2024-01-24 12:10] VITALS: BP 129/68; PULSE 72; RESP 20; TEMP 37.2; O2SAT 100; BMI 28.5
--- NOTE | 2024-01-24 12:21 | EXP.UTC ---
Discharge Plan Disposition Patient Disposition: Home, Self-Care Condition: Good Prescriptions Prescriptions: New prednisone 20 mg tablet 20 mg PO BID 2 Days Qty: 4 0RF amoxicillin 875 mg tablet 875 mg PO Q12H Qty: 20 0RF Referrals Follow up/Referrals: Patricia Purcell PA [Primary Care Provider] - See instructions Activity Restrictions/Add. Instructions Additional Instructions/Restrictions: Drink plenty of fluids. Take tylenol or ibuprofen for pain or fever. Take the medications as directed. Follow up with your regular doctor. GO TO THE ER FOR ANY WORSENING SYMPTOMS Throw your tooth brush away and get a new one. Clinical Impressions Clinical Impression: Strep throat Stand Alone Forms Stand Alone Forms: Work/School Release Instructions Patient Instructions: DI for Strep Throat Discharge ED Provider: Fred Kirk [facility] General Stated complaint: sore throat Mode of Arrival: Ambulatory Source of Information: Patient Limitations: No Limitations Time Seen by Provider: 01/24/24 12:19 Description of Symptoms (Recalled from Triage Doc. by RN): PATIENT C/O SORE THROAT AND LEFT EAR PAIN THAT STARTED TODAY HEENT Symptoms (Recalled from RN notes): Yes Resp Symptoms (Recalled from RN notes): No Skin Symptoms (Recalled from RN notes): No MS Symptoms (Recalled from RN notes): No Functional Status (Recalled from RN notes): WNL History of Present Illness Provider Complaint: She states that she has had a very sore throat for the past 3 days. Her daughter was diagnosed with strep throat yesterday. Related Data Previous Rx's Medication Instructions Recorded amoxicillin 875 mg tablet 875 mg PO Q12H #20 tabs 01/24/24 prednisone 20 mg tablet 20 mg PO BID 2 days #4 tabs 01/24/24 Allergies Allergy/AdvReac Type Severity Reaction Status Date / Time metaproterenol [From Alupent] Allergy Unknown NA Verified 05/14/23 10:13 Sulfa (Sulfonamide Allergy Unknown NA Verified 05/14/23 10:13 Antibiotics) pseudoephedrine Allergy Verified 05/14/23 10:13 [From Sudafed] Worker's Comp Is this a Worker's Comp case?: No [facility] Disclaimer: The information contained in this section may have been updated after the patient was seen, as this information can be updated by other users. Medical History Anxiety Family History Other Fibromyalgia Multiple sclerosis Social History Smoking Status: Never smoker second hand exposure: Yes alcohol intake: never substance use type: former substance user current occupational status: other Travel in the last 8 weeks: None number of children: 4 caffeine: No ROS Obtained: Yes All systems reviewed & no additional complaints except as documented Constitutional Constitutional: Reports chills and Reports fever(s) Eyes Eyes: Denies eye discharge ENT Ears, Nose, Mouth, and Throat: Reports as per HPI Cardiovascular Cardiovascular: Denies chest pain Respiratory Respiratory: Denies chest congestion and Reports cough Gastrointestinal Gastrointestingal: Reports nausea; Denies abdominal pain, constipation, cramping, diarrhea or vomiting Musculoskeletal Musculoskeletal: Denies arthralgias Integumentary/Breasts Skin/Breast: Denies rash Neurologic Neurologic: Denies paresthesias Physical Exam General General appearance: alert and in no apparent distress Head Head exam: atraumatic, normocephalic and normal inspection Eye Eye exam: Present normal appearance, PERRL and EOMI ENT ENT exam: Present mucous membranes moist and normal external ear exam Expanded ENT Exam TM/Canal exam: Bilateral TM: erythema and bulging Nose exam: Absent sinus tenderness Mouth exam: Present normal external inspection; Absent drooling Teeth exam: Present normal inspection Throat exam: Present tonsillar erythema, tonsillomegaly and tonsillar exudate Neck Neck exam: Present normal inspection, full ROM and trachea midline; Absent tenderness, meningismus or lymphadenopathy Chest Chest inspection: Present normal inspection and symmetric chest wall rise; Absent tenderness Respiratory Respiratory exam: Present normal lung sounds bilaterally; Absent respiratory distress, wheezes, stridor or accessory muscle use Cardiovascular Cardiovascular exam: Present regular rate and normal rhythm; Absent systolic murmur or diastolic murmur Abdominal Exam Abdominal exam: Present soft and normal bowel sounds; Absent distention, tenderness, guarding, rebound or rigidity Extremities Exam Extremities exam: Present normal inspection and normal capillary refill; Absent calf tenderness Back Exam Back exam: Present normal inspection and full ROM; Absent tenderness, CVA tenderness (R) or CVA tenderness (L) Neurological Exam Neurological exam: Present alert, oriented X3 and CN II-XII intact Psychiatric Psychiatric exam: Present normal affect and normal mood Skin Skin exam: Present warm, dry, intact and normal color Medical Decision Making Medical Records Medical records reviewed: No I reviewed the patient's medical records. Edgar Inquiry Pt receiving controlled substance: No Vital Signs: 01/24/24 12:10 Temperature 98.9 F Temperature Source Oral Pulse Rate [Left Brachial] 72 Respiratory Rate 20 Blood Pressure [Left Arm] 129/68 Blood Pressure Mean [Left Arm] 88 Blood Pressure Source [Left Arm] Automatic Cuff Blood Pressure Position [Left Arm] Sitting 02 Sat by Pulse Oximetry 100 Oxygen Delivery Method Room Air Lab Data Lab results reviewed: Yes I reviewed the patient's lab results.
[2024-01-24 12:24] VITALS: BP 129/68; PULSE 72; RESP 20; TEMP 37.2; O2SAT 100
[2024-01-24 12:24] LABS: UTC Strep Screen (Rapid) Positive (Negative)
== END 2024-01-24 12:34 | disposition home or self-care (01) ==
PROVIDERS: Emergency Provider Nurse Practitioner Family; PCP Physician Assistant
DX: J02.0 Streptococcal pharyngitis (principal); R07.0 Pain in throat
CPT/HCPCS: 87880; 99212; 99214; G0463

== ENCOUNTER 2024-02-18 18:41 | Emergency (ER) | payer OTHER, SELFPAY ==
[2024-02-18 18:45] VITALS: BP 113/69; PULSE 81; RESP 20; TEMP 37.9; O2SAT 97; BMI 29.0
[2024-02-18 19:00] VITALS: BP 113/69; PULSE 81; RESP 20; TEMP 37.9; O2SAT 97
--- NOTE | 2024-02-18 19:01 | ED_ITS ---
Discharge Plan Disposition Patient Disposition: Home, Self-Care Condition: Good Prescriptions Prescriptions: New cefdinir 300 mg capsule 300 mg PO BID Qty: 20 0RF fluticasone propionate [Flonase Allergy Relief] 50 mcg/actuation spray,suspension 1 - 2 spray intranasal DAILY Qty: 16 0RF Rx Instructions: administer into each nostril Referrals Follow up/Referrals: Patricia Purcell PA [Primary Care Provider] - See instructions Activity Restrictions/Add. Instructions Additional Instructions/Restrictions: *Monitor Temp, Over the counter Motrin or Tylenol as directed/as needed Tylenol every 4 hours and Motrin every 6 hours (as long as your family doctor has told you that you can take it) for fever or pain. and straight to ER if unable to lower temp less than 101.0 after medication given *Warm salt water gargles may help to soothe the throat *Throat Lozenges? *Warm fluids like tea with honey may help to soothe the throat? *Sleep elevated *Humidifier/Vaporizer Your throat swab was sent for culture. Those results are typically sent to your primary care. Be sure to follow up in 2-3 days with your family doctor/primary care physician if no improvement so they can review those result and treat if necessary. If you don?t have a primary care doctor, I recommend you get one but in the mean time, you will have to return to a walk in clinic Follow up IMMEDIATELY for new or worsening symptoms or no Noticeable improvement over the next 48-72 hours. 911 for difficulty breathing or swallowing Clinical Impressions Clinical Impression: Pharyngitis Qualifiers: Pharyngitis/tonsillitis etiology: unspecified etiology Qualified Code(s): J02.9 - Acute pharyngitis, unspecified Instructions Patient Instructions: Sore Throat, Cefdinir Discharge ED Provider: Amie Ann [facility] General Stated complaint: Sore throat,earache,cough Mode of Arrival: Ambulatory Source of Information: Patient Limitations: No Limitations Time Seen by Provider: 02/18/24 19:01 Description of Symptoms (Recalled from Triage Doc. by RN): PATIENT C/O SORE THROAT, EAR PAIN, COUGH, AND BODY ACHES THAT STARTED TODAY HEENT Symptoms (Recalled from RN notes): Yes Resp Symptoms (Recalled from RN notes): No Skin Symptoms (Recalled from RN notes): No MS Symptoms (Recalled from RN notes): No Functional Status (Recalled from RN notes): WNL History of Present Illness Provider Complaint: Patient states that all her children has had strep throat and today she has been having sore throat, pain and pressure in her ears, and body aches, States this evening she was still not feeling any better so she came in to get checked Related Data Previous Rx's Medication Instructions Recorded cefdinir 300 mg capsule 300 mg PO BID #20 caps 02/18/24 fluticasone propionate 50 1 - 2 spray intranasal DAILY #16 02/18/24 mcg/actuation nasal grams spray,suspension (Flonase Allergy Relief) Allergies Allergy/AdvReac Type Severity Reaction Status Date / Time metaproterenol [From Alupent] Allergy Unknown NA Verified 05/14/23 10:13 Sulfa (Sulfonamide Allergy Unknown NA Verified 05/14/23 10:13 Antibiotics) pseudoephedrine Allergy Verified 05/14/23 10:13 [From Sudafed] Worker's Comp Is this a Worker's Comp case?: No [facility] Disclaimer: The information contained in this section may have been updated after the patient was seen, as this information can be updated by other users. Medical History Anxiety Family History Other Fibromyalgia Multiple sclerosis Social History Smoking Status: Never smoker second hand exposure: Yes alcohol intake: never substance use type: former substance user current occupational status: other Travel in the last 8 weeks: None number of children: 4 caffeine: No ROS Obtained: Yes All systems reviewed & no additional complaints except as documented and Yes Systems reviewed as appropriate & no additional complaints except as documented Constitutional Constitutional: Reports system reviewed and no additional complaints, except as documented, Reports as per HPI, Reports body ache, Reports fever(s) and Reports headache(s) ENT Ears, Nose, Mouth, and Throat: Reports system reviewed and no additional complaints, except as documented, Reports as per HPI, Reports otalgia, Reports headache(s) and Reports sore throat Cardiovascular Cardiovascular: Reports system reviewed and no additional complaints, except as documented and Reports as per HPI Respiratory Respiratory: Reports system reviewed and no additional complaints, except as documented and Reports as per HPI Gastrointestinal Gastrointestingal: Reports system reviewed and no additional complaints, except as documented and as per HPI Neurologic Neurologic: Reports headache(s) Physical Exam General General appearance: alert and in no apparent distress ENT ENT exam: Present mucous membranes moist Expanded ENT Exam TM/Canal exam: Bilateral TM: bulging (mild redness noted) Throat exam: Present tonsillar erythema (small patchy like area noted) Respiratory Respiratory exam: Present normal lung sounds bilaterally; Absent respiratory distress or wheezes Cardiovascular Cardiovascular exam: Present regular rate, normal rhythm and normal heart sounds Neurological Exam Neurological exam: Present alert, oriented X3 and normal gait Medical Decision Making Edgar Inquiry Pt receiving controlled substance: No Edgar was queried for this patient: No Vital Signs: 02/18/24 18:45 Temperature 100.3 F H Temperature Source Oral Pulse Rate [Left Brachial] 81 Respiratory Rate 20 Blood Pressure [Left Arm] 113/69 Blood Pressure Mean [Left Arm] 83 Blood Pressure Source [Left Arm] Automatic Cuff Blood Pressure Position [Left Arm] Sitting 02 Sat by Pulse Oximetry 97 Oxygen Delivery Method Room Air Lab Data Lab results reviewed: Yes I reviewed the patient's lab results.
[2024-02-18 19:09] LABS: UTC Strep Screen (Rapid) Negative (Negative)
== END 2024-02-18 19:05 | disposition home or self-care (01) ==
LOC: UTC 19:09
PROVIDERS: Emergency Provider Nurse Practitioner; PCP Physician Assistant
DX: J02.9 Acute pharyngitis, unspecified (principal); H92.03 Otalgia, bilateral
CPT/HCPCS: 87880; 99212; 99214; G0463

== ENCOUNTER 2024-02-23 14:00 | Emergency (ER) | payer OTHER, SELFPAY ==
[2024-02-23 14:10] VITALS: BP 119/75; PULSE 93; RESP 20; TEMP 38.1; O2SAT 96; BMI 28.8
--- NOTE | 2024-02-23 14:23 | ED_ITS ---
Discharge Plan Disposition Patient Disposition: Home, Self-Care Condition: Good Prescriptions Prescriptions: New guaifenesin [Mucinex] 600 mg tablet extended release 12hr 1,200 mg PO BID PRN (Reason: cough) Qty: 20 0RF azithromycin [Zithromax Z-[place]] 250 mg tablet See Rx Instructions .ROUTE .COMPLEX 5 Days Qty: 6 0RF Rx Instructions: For 250 mg dose pack: take 500 mg today (day 1), then 250 mg for 4 days (days 2-5) methylprednisolone [Medrol ([place])] 4 mg tablets,dose pack See Rx Instructions .Route .COMPLEX 6 Days Qty: 21 0RF Rx Instructions: taper pack; No Action fluticasone propionate [Flonase Allergy Relief] 50 mcg/actuation spray,suspension 1 - 2 spray intranasal DAILY Qty: 16 0RF Rx Instructions: administer into each nostril Referrals Follow up/Referrals: Patricia Purcell PA [Primary Care Provider] - See instructions Activity Restrictions/Add. Instructions Additional Instructions/Restrictions: *Monitor Temp, Over the counter Motrin or Tylenol as directed/as needed Tylenol every 4 hours and Motrin every 6 hours (as long as your family doctor has told you that you can take it) for fever or pain. and straight to ER if unable to lower temp less than 101.0 after medication given *Warm salt water gargles may help to soothe the throat *Throat Lozenges? *Warm fluids like tea with honey may help to soothe the throat? *Sleep elevated *Humidifier/Vaporizer Take medication as prescribed Your throat swab was sent for culture. Those results are typically sent to your primary care. Be sure to follow up in 2-3 days with your family doctor/primary care physician if no improvement so they can review those result and treat if necessary. If you don?t have a primary care doctor, I recommend you get one but in the mean time, you will have to return to a walk in clinic Follow up IMMEDIATELY for new or worsening symptoms or no Noticeable improvement over the next 48-72 hours. 911 for difficulty breathing or swallowing Clinical Impressions Clinical Impression: Pharyngitis Qualifiers: Pharyngitis/tonsillitis etiology: unspecified etiology Qualified Code(s): J02.9 - Acute pharyngitis, unspecified Instructions Patient Instructions: Sore Throat Discharge ED Provider: Amie Ann [facility] General Stated complaint: sore throat, fever, soa Mode of Arrival: Ambulatory Source of Information: Patient Limitations: No Limitations Time Seen by Provider: 02/23/24 14:24 Description of Symptoms (Recalled from Triage Doc. by RN): PATIENT C/O SORE THROAT, DIZZINESS, FEVER, SOA, WET COUGH, AND EAR PAIN X 5 DAYS HEENT Symptoms (Recalled from RN notes): Yes Resp Symptoms (Recalled from RN notes): Yes Skin Symptoms (Recalled from RN notes): No MS Symptoms (Recalled from RN notes): No Functional Status (Recalled from RN notes): WNL History of Present Illness Provider Complaint: Patient states that she has been having sore throat, fever, chills, cough and congestion States she was seen about 5 days ago and given antibiotics but she didnt take them she was worried they may make it worse because she got a fever after starting it so today when she wasnt any better she came back in to get checked again states she took a home COVID test and it was negative Related Data Previous Rx's Medication Instructions Recorded fluticasone propionate 50 1 - 2 spray intranasal DAILY #16 02/18/24 mcg/actuation nasal grams spray,suspension (Flonase Allergy Relief) azithromycin 250 mg tablet See Rx Instructions PO .COMPLEX 5 02/23/24 (Zithromax Z-[place]) days #6 tabs guaifenesin 600 mg tablet, 1,200 mg (2 x 600 mg) PO BID PRN 02/23/24 extended release 12 hr (Mucinex) cough #20 tabs methylprednisolone 4 mg tablets in See Rx Instructions .Route 02/23/24 a dose pack (Medrol ([place])) .COMPLEX 6 days #21 tabs Allergies Allergy/AdvReac Type Severity Reaction Status Date / Time metaproterenol [From Alupent] Allergy Unknown NA Verified 05/14/23 10:13 Sulfa (Sulfonamide Allergy Unknown NA Verified 05/14/23 10:13 Antibiotics) pseudoephedrine Allergy Verified 05/14/23 10:13 [From Sudafed] Worker's Comp Is this a Worker's Comp case?: No [facility] Disclaimer: The information contained in this section may have been updated after the patient was seen, as this information can be updated by other users. Medical History (Updated 02/23/24 @ 14:56 by Amie Ann APRN) Asthma Anxiety Family History Other Fibromyalgia Multiple sclerosis Social History Smoking Status: Never smoker second hand exposure: Yes alcohol intake: never substance use type: former substance user current occupational status: other Travel in the last 8 weeks: None number of children: 4 caffeine: No ROS Obtained: Yes All systems reviewed & no additional complaints except as documented and Yes Systems reviewed as appropriate & no additional complaints except as documented Constitutional Constitutional: Reports system reviewed and no additional complaints, except as documented, Reports as per HPI, Reports body ache, Reports chills, Reports fever(s) and Reports headache(s) ENT Ears, Nose, Mouth, and Throat: Reports system reviewed and no additional complaints, except as documented, Reports as per HPI, Reports otalgia, Reports headache(s) and Reports sore throat Cardiovascular Cardiovascular: Reports system reviewed and no additional complaints, except as documented and Reports as per HPI Respiratory Respiratory: Reports system reviewed and no additional complaints, except as documented, Reports as per HPI, Reports shortness of breath (at times with cough) and Reports cough Gastrointestinal Gastrointestingal: Reports system reviewed and no additional complaints, except as documented and as per HPI; Denies abdominal pain, diarrhea, nausea or vomiting Neurologic Neurologic: Reports headache(s) Physical Exam General General appearance: alert and in no apparent distress ENT ENT exam: Present mucous membranes moist Expanded ENT Exam TM/Canal exam: Bilateral TM: bulging Throat exam: Present tonsillar erythema (red patchy like areas noted ) Respiratory Respiratory exam: Present normal lung sounds bilaterally; Absent respiratory distress or wheezes Cardiovascular Cardiovascular exam: Present regular rate, normal rhythm and normal heart sounds Abdominal Exam Abdominal exam: Present soft and normal bowel sounds; Absent distention or tenderness Neurological Exam Neurological exam: Present alert, oriented X3 and normal gait Medical Decision Making Edgar Inquiry Pt receiving controlled substance: No Edgar was queried for this patient: No Vital Signs: 02/23/24 14:10 Temperature 100.5 F H Temperature Source Oral Pulse Rate [Left Brachial] 93 H Respiratory Rate 20 Blood Pressure [Left Arm] 119/75 Blood Pressure Mean [Left Arm] 89 Blood Pressure Source [Left Arm] Automatic Cuff Blood Pressure Position [Left Arm] Sitting 02 Sat by Pulse Oximetry 96 Oxygen Delivery Method Room Air Lab Data Lab results reviewed: Yes I reviewed the patient's lab results. Medical Decision Narrative: Discussed URP and COVID testing and she declined Explained to patient that she needs to take medication as prescribed and follow up if no improvement Discussed further testing and CXR and she declined
[2024-02-23 14:41] LABS: UTC Strep Screen (Rapid) Negative (Negative)
[2024-02-23 14:55] VITALS: BP 119/75; PULSE 93; RESP 20; TEMP 38.1; O2SAT 96
== END 2024-02-23 15:04 | disposition home or self-care (01) ==
PROVIDERS: Emergency Provider Nurse Practitioner; PCP Physician Assistant
DX: J02.9 Acute pharyngitis, unspecified (principal); R50.9 Fever, unspecified; R09.81 Nasal congestion; R05.9 Cough, unspecified
CPT/HCPCS: 87880; 99212; 99214; G0463